=== PATIENT | male | born 1990 | race Caucasian/White ===

== ENCOUNTER 2017-04-19 21:04 | Emergency (ER) | payer OTHER ==
--- NOTE | 2017-04-19 21:16 | PDOC ---
Rapid Medical Evaluation Chief Complaint: Sore Throat Time Seen by Provider: 04/19/17 21:13 Medical Evaluation: 04/19/17 21:13 I have performed a brief in-person evaluation of this patient. The patient presents with a chief complaint of: Sore throat, right eye redness, left ear pain Pertinent physical exam findings: Right eye w/ moderate redness, left cervical lymphadenopathy. I have ordered the following: none. The patient will proceed to the ED for further evaluation. Patient states his son recently diagnosed with the flu, and believes his son may have passed illness to him. OTC medications not working per patient.
[2017-04-19 21:19] VITALS: BP 127/80; PULSE 105; TEMP 98.7; BMI 33.6
--- NOTE | 2017-04-19 22:39 | PDOC ---
History of Present Illness - General Chief Complaint: Sore Throat Stated Complaint: COLD SYMPTOMS Time Seen by Provider: 04/19/17 21:13 - History of Present Illness Initial Comments: 04/19/17 22:22 CHIEF COMPLAINT: sore throat, fever, cough HISTORY OF PRESENT ILLNESS: 26 yo M with no significant PMH presents to fast track with fever and chills last week (now resolved), cough, sneezing, congestion. Patient states that the coughing has lasted over a week and now he sees blood tinged sputum when he coughs. He states he was "sweating a lot overnights last week but today I finally stopped having a fever." He reports having "some diarrhea" but denies any nausea or vomiting. He reports that he has had a headache with pressure and pain to his left ear. PAST MEDICAL HISTORY: Denies past medical history FAMILY HISTORY: Denies SOCIAL HISTORY: Denies tobacco, alcohol, illicit drug use. SURGICAL HISTORY: Denies ALLERGIES: No known drug allergies REVIEW OF SYSTEMS General/Constitutional: Fever last week, none today. Denies weakness, weight change. HEENT: Left ear pain. Denies change in vision. Denies ear pain or discharge. Denies sore throat. Cardiovascular: Denies chest pain or shortness of breath. Respiratory: Cough x 1 week, now with blood tinged sputum. Gastrointestinal: Denies nausea, vomiting, diarrhea. Genitourinary: Denies dysuria, frequency, or change in urination. Musculoskeletal: Denies joint or muscle swelling or pain. Denies neck or back pain. Skin and breasts: Denies rash or easy bruising. Neurologic: Headache. Denies vertigo, loss of consciousness, or loss of sensation. PHYSICAL EXAM General Appearance: Well-appearing, appropriately dressed. No apparent distress. HEENT: Sinus congestion, maxillary sinus pressure. Post nasal drip appreciated. EOMI, PERRLA, normal ENT inspection, normal voice, TMs normal, pharynx normal. No conjunctival pallor. No photophobia, scleral icterus. Respiratory/Chest: Lungs CTAB. Cardiovascular: RRR. S1, S2. Musculoskeletal/Extremities: Normal inspection. FROM of all extremities, normal capillary refill. Pelvis Stable. No CVA tenderness. No tenderness to extremities, pedal edema, swelling, erythema or deformity. Integumentary: Appropriate color, dry, warm. No cyanosis, erythema, jaundice or rash Neurologic: satin finisher II-XII intact. Fully oriented, alert. Appropriate mood/affect. Motor strength 5/5. No appreciable EOM palsy, facial droop or sensory deficit. 04/19/17 22:45 Past History - Past Medical History Allergies/Adverse Reactions: Allergies Allergy/AdvReac Type Severity Reaction Status Date / Time No Known Allergies Allergy Verified 04/19/17 21:12 Home Medications: Ambulatory Orders Azithromycin [Zithromax 250mg Tablets -] 250 mg PO ASDIR #6 tab 04/19/17 COPD: No - Suicide/Smoking/Psychosocial Hx Smoking History: Never smoked *Physical Exam - Vital Signs Last Vital Signs Temp Pulse Resp BP Pulse Ox 98.7 F 105 H 18 127/80 99 04/19/17 21:15 04/19/17 21:15 04/19/17 21:15 04/19/17 21:15 04/19/17 21:15 ED Treatment Course - ADDITIONAL ORDERS Additional order review: 04/19/17 22:00 Group A Strep Rapid Antigen - Preliminary Throat Medical Decision Making - Medical Decision Making 04/19/17 22:38 26 yo M with no significant PMH presents to fast track with fever and chills last week (now resolved), cough, sneezing, congestion. -flu, strep flu/strep negative Given duration of symptoms will rx antibiotics. -azithromycin Advised patient to take medication as prescribed and follow up with PCP next week. Advised patient of signs and symptoms for return to ED. Patient verbalized understanding and agrees to plan. 04/19/17 22:45 *DC/Admit/Observation/Transfer Diagnosis at time of Disposition: Sinusitis Qualifiers: Sinusitis location: unspecified location Chronicity: acute Recurrence: non- recurrent Qualified Code(s): J01.90 - Acute sinusitis, unspecified - Discharge Dispostion Disposition: HOME Condition at time of disposition: Stable Admit: No - Prescriptions Prescriptions: Azithromycin [Zithromax 250mg Tablets -] 250 mg PO ASDIR #6 tab - Referrals - Patient Instructions Printed Discharge Instructions: DI for Sinusitis Additional Instructions: Please take medication as prescribed and complete the ENTIRE course of antibiotics. Probiotics can help prevent abdominal discomfort and/or diarrhea. Follow up with your primary care doctor next week. If you develop any persistent fever unrelieved by Motrin, vomiting, persistent diarrhea, or any new or worsening symptoms, please return to the ER. - Post Discharge Activity
== END 2017-04-19 22:55 | disposition home or self-care (01) ==
LOC: JER 21:04 → JERFT 21:04
DX: J01.90 Acute sinusitis, unspecified (principal)
CPT/HCPCS: 87070; 87430; 87804; 99281-25